=== PATIENT | female | born 1995 | race Two or more races ===

== ENCOUNTER → 2024-05-03 | Emergency (ER) | payer OTHER ==
[~2024-05-03] VITALS: Ht 162.6 cm; Wt 49.4 kg
== END | disposition left against medical advice (07) ==
LOC: ER 04:17
DX: Z53.21 Procedure and treatment not carried out due to patient leaving prior to being seen by health care provider (principal)

== ENCOUNTER 2025-01-16 17:04 | Emergency (ER) | payer OTHER ==
[~2025-01-16] VITALS: Ht 162.6 cm; Wt 43.1 kg
[2025-01-16] MEDS ORDERED: METHYLPREDNISOLONE SOD SUCC 125 MG VIAL IV ONE (20:00)
[2025-01-16] MEDS ORDERED: ONDANSETRON HCL 2 MG/ML VIAL IV ONE (20:00)
[2025-01-16] MEDS ORDERED: CETIRIZINE HCL 5 MG/5 ML ML PO ONE (20:00)
[2025-01-16] MEDS ORDERED: LEVALBUTEROL HCL 1.25 MG/3 ML SOLUTION IH SCH (20:00)
[2025-01-16] MEDS ORDERED: KETOROLAC TROMETHAMINE 30 MG VIAL IV ONE (20:00)
[2025-01-16] MEDS ORDERED: 0.9 % SODIUM CHLORIDE 500 ML IV ONE (20:00)
[2025-01-16] MEDS ORDERED: GUAIFENESIN 200 MG/10 ML BLIST.PACK PO ONE ×2 (20:00→21:13)
[2025-01-16] MEDS ORDERED: FAMOTIDINE/PF 20 MG/2 ML VIAL IV ONE (20:00)
[2025-01-16] MEDS ORDERED: IPRATROPIUM BROMIDE 0.5 MG/2.5 ML AMPUL.NEB IH SCH (20:00)
[2025-01-16 21:09] LABS: BASO % 0.0 % (0.1-1.2); EOS # 0.02 (0.04-0.54); EOS % 0.5 % (0.7-7.0); LYMPH # 1.89 (1.18-3.74); LYMPH % 46.1 % (19.3-53.1); MEAN PLATELET VOLUME 10.50 fl (9.4-12.4); MONO # 0.39 (0.24-0.82); MONO % 9.5 % (4.7-12.5); NEUT # 1.79 (1.56-6.13); NEUT % 43.7 % (34.0-71.1); RED CELL DISTRIBUTION WIDTH 14.5 % (11.6-14.4)
[2025-01-16] MEDS ORDERED: CETIRIZINE HCL 5MG/5ML BLIST.PACK PO ONE (21:12)
[2025-01-16] MEDS ORDERED: ONDANSETRON HCL 2 MG/ML VIAL ONE (21:12)
[2025-01-16] MEDS ORDERED: METHYLPREDNISOLONE SOD SUCC 125 MG VIAL ONE (21:12)
[2025-01-16] MEDS ORDERED: KETOROLAC TROMETHAMINE 30 MG VIAL ONE (21:12)
[2025-01-16] MEDS ORDERED: FAMOTIDINE/PF 20 MG/2 ML VIAL ONE (21:13)
[2025-01-16 21:29] LABS: BUN CREA RATIO 21.0 (7.0-25.0); CREATININE SERUM 0.66 mg/dL (0.55-1.02); GFR 107.43; GLUCOSE FASTING 80.0 mg/dL (65-100); OSMOLALITY SERUM 279.0 MOSM/KG (275-295)
[2025-01-16] MEDS ORDERED: IPRATROPIUM BROMIDE 0.5 MG/2.5 ML AMPUL.NEB IH ONE (22:15)
[2025-01-16] MEDS ORDERED: LEVALBUTEROL HCL 1.25 MG/3 ML SOLUTION IH ONE (22:15)
[2025-01-16 22:22] LABS: URINE APPEARANCE Cloudy; URINE BILIRRUBIN Negative (NEGATIVE); URINE BLOOD Negative; URINE COLOR Dark Yellow; URINE GLUCOSE Negative (NEGATIVE); URINE LEUKOCYTE Small; URINE NITRATE Negative; URINE PROTEIN 30 (NEGATIVE); URINE UROBILINOGEN 1.0 E.U./dl
[2025-01-16 22:25] LABS: URINE BACTERIA 6204.0 uL (0.0-1933); URINE RBC 13.6 uL (0.0-20.8); URINE WBC 35.8 uL (0.0-23.2)
[2025-01-16 22:36] LABS: TYPE CELLS SQUAMOUS; URINE CAST 0.73 uL (0.0-1.40); URINE EPITHELIAL CELLS > 201.7 uL (0.0-38.8); URINE KETONE 80 (NEGATIVE); URINE MUCUS HEAVY
[2025-01-16 22:42] LABS: COVID-19 AG NEGATIVE (NEGATIVE)
[2025-01-17] MEDS ORDERED: TUSSIN DM MAX118 ML PO (01:54)
[2025-01-17] MEDS ORDERED: PEPCID AC20 MG PO (01:54)
[2025-01-17] MEDS ORDERED: CIPRO500 MG PO (01:54)
[2025-01-17] MEDS ORDERED: DOLOGEN 325-11 EACH PO (01:54)
[2025-01-17] MEDS ORDERED: OSEL75CA PO (01:54)
== END 2025-01-17 02:20 | disposition home or self-care (01) ==
LOC: ER 17:05
DX: J10.1 Influenza due to other identified influenza virus with other respiratory manifestations (principal); N39.0 Urinary tract infection, site not specified; Z20.822 Contact with and (suspected) exposure to COVID-19; Z91.030 Bee allergy status